=== PATIENT | female | born 1985 | race Caucasian/White ===

== ENCOUNTER 2019-04-15 04:33 | Emergency (ER) | payer MEDICAID, OTHER ==
[~2019-04-15] VITALS: Ht 152.4 cm; Wt 69.0 kg
[2019-04-15] MEDS ORDERED: SODIUM CHLORIDE 0.9% 1,000 ML IV ONE (05:01)
[2019-04-15] MEDS ORDERED: ONDANSETRON HCL 4MG/2ML INJ IV STA (05:01)
[2019-04-15] MEDS ORDERED: MORPHINE SULFATE 4 MG/ML CPJ (NOT FOR IM USE) IV STA (05:01)
[2019-04-15] MEDS ORDERED: DIPHENHYDRAMINE 50MG/ML VIAL IV ONE (05:15)
[2019-04-15 05:33] LABS: BASOPHILS % 1.2 % (0.0-2.0); EOSINOPHILS % 2.6 % (0.0-5.0); HEMATOCRIT. 36.8 % (36.0-48.0); HEMOGLOBIN. 12.6 g/dL (12.0-16.0); LYMPHOCYTES % 35.2 % (20.0-50.0); MEAN CORPUSCULAR HEMOGLOBIN 30.7 pg (28.0-32.0); MEAN CORPUSCULAR VOLUME 89.5 fL (81.0-99.0); MEAN PLATELET VOLUME 6.8 fl (7.4-10.4); MONOCYTES % 7.4 % (2.0-8.0); NEUTROPHILS % 53.6 % (40.0-76.0); PLATELET 364 x1000/uL (130-400); RED BLOOD CELL COUNT 4.11 mill/uL (4.2-5.4)
[2019-04-15 05:42] LABS: CHLORIDE 106 mEq/L (98-107)
[2019-04-15 05:53] LABS: CLARITY URINE CLEAR (CLEAR); COLOR URINE YELLOW (YELLOW); KETONES URINE NEGATIVE (NEGATIVE); LEUKOCYTE ESTERASE URINE NEGATIVE (NEGATIVE); NITRITE URINE NEGATIVE (NEGATIVE); OCCULT BLOOD URINE NEGATIVE (NEGATIVE); PH URINE 6.5 (4.5-8.0); PROTEIN URINE NEGATIVE (NEGATIVE); SPECIFIC GRAVITY URINE 1.019 (1.005-1.030); UROBILINOGEN URINE 0.2 E.U./dL (0.2-1.0)
[2019-04-15 07:34] VITALS: BP 118/74
== END 2019-04-15 07:45 | disposition home or self-care (01) ==
LOC: ER 04:33
DX: R10.9 Unspecified abdominal pain (principal); E11.9 Type 2 diabetes mellitus without complications; I10 Essential (primary) hypertension; Z88.6 Allergy status to analgesic agent
CPT/HCPCS: 36415; 74176; 76705; 80053; 81003; 81025; 83690; 85025; 96374; 96375; 99284; J1200; J2270; J2405; J7030

== ENCOUNTER 2020-04-24 13:43 | Emergency (ER) | payer MEDICAID, OTHER ==
[~2020-04-24] VITALS: Ht 157.5 cm; Wt 69.0 kg
[2020-04-24 14:36] LABS: CLARITY URINE CLOUDY (CLEAR); COLOR URINE YELLOW (YELLOW); KETONES URINE NEGATIVE (NEGATIVE); LEUKOCYTE ESTERASE URINE 3+ (NEGATIVE); NITRITE URINE NEGATIVE (NEGATIVE); OCCULT BLOOD URINE NEGATIVE (NEGATIVE); PH URINE 7.5 (4.5-8.0); PROTEIN URINE NEGATIVE (NEGATIVE); SPECIFIC GRAVITY URINE 1.019 (1.005-1.030); UROBILINOGEN URINE 0.2 E.U./dL (0.2-1.0)
[2020-04-24 14:39] LABS: BASOPHILS % 1.4 % (0.0-2.0); EOSINOPHILS % 1.3 % (0.0-5.0); HEMATOCRIT. 40.8 % (36.0-48.0); HEMOGLOBIN. 13.9 g/dL (12.0-16.0); LYMPHOCYTES % 32.2 % (20.0-50.0); MEAN CORPUSCULAR HEMOGLOBIN 30.6 pg (28.0-32.0); MEAN CORPUSCULAR VOLUME 89.9 fL (81.0-99.0); MEAN PLATELET VOLUME 6.5 fl (7.4-10.4); NEUTROPHILS % 59.1 % (40.0-76.0); PLATELET 373 x1000/uL (130-400); RED BLOOD CELL COUNT 4.54 mill/uL (4.2-5.4); RED CELL DISTRIBUTION WIDTH 13.6 % (11.6-14.6)
[2020-04-24 14:40] LABS: CHLORIDE 105 mEq/L (98-107)
[2020-04-24 14:41] LABS: INR 0.9
[2020-04-24 15:18] LABS: HCG SCREEN NEGATIVE
[2020-04-24] MEDS ORDERED: MORPHINE SULFATE 4 MG/ML CPJ (NOT FOR IM USE) IV ONE (15:30)
[2020-04-24 17:00] VITALS: BP 114/67
[2020-04-24] MEDS ORDERED: IOHEXOL-300 100 ML BOTTLE ONE (18:23)
== END 2020-04-24 17:00 | disposition home or self-care (01) ==
LOC: ER 13:43
DX: N10 Acute pyelonephritis (principal); E11.9 Type 2 diabetes mellitus without complications; Z87.440 Personal history of urinary (tract) infections; Z98.890 Other specified postprocedural states; Z88.6 Allergy status to analgesic agent
CPT/HCPCS: 36415; 74176; 80053; 81003; 81025; 83690; 84703; 85025; 85610; 87086; 96374; 99284; J2270; Q9967

== ENCOUNTER 2021-03-23 15:55 | Inpatient (IN) | payer MEDICAID ==
[~2021-03-23] VITALS: Ht 149.9 cm; Wt 66.2 kg
[2021-03-23] MEDS ORDERED: ONDANSETRON HCL 4MG/2ML INJ IV STA (16:55)
[2021-03-23] MEDS ORDERED: MORPHINE SULFATE 4 MG/ML CPJ (NOT FOR IM USE) IV STA (16:55)
[2021-03-23] MEDS ORDERED: SODIUM CHLORIDE 0.9% 1,000 ML IV ONE (17:00)
[2021-03-23 17:43] LABS: BASOPHILS % 1.3 % (0.0-2.0); EOSINOPHILS % 2.1 % (0.0-5.0); HEMATOCRIT. 37.3 % (36.0-48.0); HEMOGLOBIN. 12.2 g/dL (12.0-16.0); MEAN CORPUSCULAR HEMOGLOBIN 27.5 pg (28.0-32.0); MEAN CORPUSCULAR VOLUME 83.9 fL (81.0-99.0); MEAN PLATELET VOLUME 6.6 fl (7.4-10.4); MONOCYTES % 6.8 % (2.0-8.0); NEUTROPHILS % 59.8 % (40.0-76.0); PLATELET 446 x1000/uL (130-400); RED BLOOD CELL COUNT 4.45 mill/uL (4.2-5.4); RED CELL DISTRIBUTION WIDTH 15.4 % (11.6-14.6)
[2021-03-23 17:52] LABS: INR 0.9
[2021-03-23 17:53] LABS: ETHANOL BLOOD < 10 mg/dL
[2021-03-23 18:05] LABS: HCG SCREEN NEGATIVE
[2021-03-23 18:09] LABS: CHLORIDE 109 mEq/L (98-107)
[2021-03-23] MEDS ORDERED: CEFTRIAXONE 2 G PREMIX 50 ML IV ONE (18:45)
[2021-03-23] MEDS ORDERED: FENTANYL CITRATE/PF 50MCG/ML 2ML VIAL IV ONE (18:45)
[2021-03-23] MEDS ORDERED: METHYLPREDNISOLONE SOD SUCC 125 MG/2 ML VIAL IV ONE ×2 (18:45→21:15)
[2021-03-23] MEDS ORDERED: DIPHENHYDRAMINE 50MG/ML VIAL IV ONE ×2 (18:45→21:15)
[2021-03-23] MEDS ORDERED: METRONIDAZOLE 500 MG PREMIX 100 ML IV ONE (18:45)
[2021-03-23 20:14] LABS: CLARITY URINE CLEAR (CLEAR); COLOR URINE YELLOW (YELLOW); KETONES URINE NEGATIVE (NEGATIVE); LEUKOCYTE ESTERASE URINE NEGATIVE (NEGATIVE); NITRITE URINE NEGATIVE (NEGATIVE); OCCULT BLOOD URINE NEGATIVE (NEGATIVE); PH URINE 7.5 (4.5-8.0); PROTEIN URINE NEGATIVE (NEGATIVE); SPECIFIC GRAVITY URINE 1.011 (1.005-1.030); UROBILINOGEN URINE 0.2 E.U./dL (0.2-1.0)
[2021-03-23 20:24] LABS: *BARBITURATES SCREEN URINE NEGATIVE (NEGATIVE); *BENZODIAZEPINES SCREEN URINE NEGATIVE (NEGATIVE); *COCAINE SCREEN URINE NEGATIVE (NEGATIVE); METHADONE URINE SCREEN NEGATIVE (NEGATIVE)
[2021-03-23 20:25] LABS: *AMPHETAMINES SCREEN URINE PRESUMTIVE POSITIVE (NEGATIVE); CANNABINOID URINE SCREEN NEGATIVE (NEGATIVE); OPIATES URINE SCREEN PRESUMTIVE POSITIVE (NEGATIVE); PHENCYCLIDINE URINE SCREEN NEGATIVE (NEGATIVE)
[2021-03-23] MEDS ORDERED: EPINEPHRINE 1:1000 1 MG/ML AMP IM ONE (21:15)
[2021-03-23] MEDS ORDERED: MORPHINE SULFATE 4 MG/ML CPJ (NOT FOR IM USE) IV ONE (22:15)
[2021-03-23] MEDS ORDERED: IOHEXOL-300 100 ML BOTTLE ONE (23:20)
[2021-03-24] MEDS ORDERED: LORAZEPAM 2MG/ML CPJ IV PRN (02:00)
[2021-03-24] MEDS: MORPHINE SULFATE 2 MG/ML CPJ (NOT FOR IM USE) IV PRN ×2 (02:15→06:35)
[2021-03-24] MEDS ORDERED: MORPHINE SULFATE 2 MG/ML CPJ (NOT FOR IM USE) IV SCH (08:15)
[2021-03-24] MEDS ORDERED: ONDANSETRON HCL 4MG/2ML INJ IV SCH (08:15)
[2021-03-24] MEDS ORDERED: NALOXONE HCL 0.4MG/ML VIAL IV PRN (08:45)
[2021-03-24] MEDS ORDERED: ONDANSETRON HCL 4MG/2ML INJ IV PRN (08:45)
[2021-03-24] MEDS ORDERED: HYDROCODONE/ACETAMINOPHEN 5/325MG TABLET PO PRN (08:45)
[2021-03-24 11:25] VITALS: BP 139/93
[2021-03-24 12:00] VITALS: BP 104/50
[2021-03-24] MEDS ORDERED: ONDA4TAB5 MT (12:20)
[2021-03-24] MEDS ORDERED: ALPR0.5T MT (12:20)
[2021-03-24] MEDS ORDERED: HYDR-4009 MT (12:20)
[2021-03-24 14:57] VITALS: BP 120/71
[2021-03-24 16:00] VITALS: BP 120/71
== END 2021-03-24 16:50 | disposition home or self-care (01) | DRG 532 ==
LOC: ER 15:55 → MICUSO 03-24 01:07 → 6EST 03-24 08:36
PROVIDERS: ADMIT Internal Medicine; ATTEND Internal Medicine
DX: N83.209 Unspecified ovarian cyst, unspecified side (principal); E87.8 Other disorders of electrolyte and fluid balance, not elsewhere classified; E11.9 Type 2 diabetes mellitus without complications; F17.210 Nicotine dependence, cigarettes, uncomplicated; E66.9 Obesity, unspecified; F15.90 Other stimulant use, unspecified, uncomplicated; Z90.49 Acquired absence of other specified parts of digestive tract; Z98.1 Arthrodesis status; Z68.29 Body mass index [BMI] 29.0-29.9, adult; Z88.8 Allergy status to other drugs, medicaments and biological substances; Z79.899 Other long term (current) drug therapy; Z91.041 Radiographic dye allergy status; Z71.51 Drug abuse counseling and surveillance of drug abuser; Z71.6 Tobacco abuse counseling
CPT/HCPCS: 36415; 71045; 74177; 76830; 76856; 80053; 80305; 80320; 81003; 83605; 84703; 85025; 86850; 86900; 93005; 99285; J0696; J1200; J2060; J2270; J2405; J2930; J3010; J3490; J7030; Q9967; G0480

== ENCOUNTER 2021-03-25 22:38 | Emergency (ER) | payer MEDICAID ==
[~2021-03-25] VITALS: Ht 149.9 cm; Wt 67.0 kg
[~2021-03-25 22:38] MED LIST: ALPR0.5T MT; HYDR-4009 MT; ONDA4TAB5 MT
[2021-03-25] MEDS: ACETAMINOPHEN 325MG TABLET PO STA ×2 (23:10→23:11)
[2021-03-25 23:16] LABS: CLARITY URINE CLOUDY (CLEAR); COLOR URINE YELLOW (YELLOW); KETONES URINE NEGATIVE (NEGATIVE); LEUKOCYTE ESTERASE URINE 1+ (NEGATIVE); NITRITE URINE NEGATIVE (NEGATIVE); OCCULT BLOOD URINE NEGATIVE (NEGATIVE); PROTEIN URINE NEGATIVE (NEGATIVE); SPECIFIC GRAVITY URINE 1.022 (1.005-1.030); UROBILINOGEN URINE 0.2 E.U./dL (0.2-1.0)
[2021-03-25 23:34] LABS: CHLORIDE 106 mEq/L (98-107)
[2021-03-25 23:35] LABS: BASOPHILS % 0.3 % (0.0-2.0); EOSINOPHILS % 0.4 % (0.0-5.0); HEMATOCRIT. 32.1 % (36.0-48.0); HEMOGLOBIN. 10.5 g/dL (12.0-16.0); MEAN CORPUSCULAR HEMOGLOBIN 27.5 pg (28.0-32.0); MEAN CORPUSCULAR VOLUME 83.9 fL (81.0-99.0); MEAN PLATELET VOLUME 6.3 fl (7.4-10.4); MONOCYTES % 6.4 % (2.0-8.0); NEUTROPHILS % 64.9 % (40.0-76.0); PLATELET 448 x1000/uL (130-400); RED BLOOD CELL COUNT 3.83 mill/uL (4.2-5.4); RED CELL DISTRIBUTION WIDTH 15.6 % (11.6-14.6)
[2021-03-25 23:40] LABS: HCG SCREEN NEGATIVE
[2021-03-26] MEDS ORDERED: POTASSIUM CHLORIDE 20MEQ TABLET SR PO ONE
[2021-03-26 01:00] VITALS: BP 142/82
== END 2021-03-26 01:48 | disposition home or self-care (01) ==
LOC: ER 22:38
DX: R10.31 Right lower quadrant pain (principal); R10.32 Left lower quadrant pain; R11.2 Nausea with vomiting, unspecified; E11.9 Type 2 diabetes mellitus without complications; I10 Essential (primary) hypertension; Z98.890 Other specified postprocedural states; Z88.5 Allergy status to narcotic agent
CPT/HCPCS: 36415; 80053; 81003; 84703; 85025; 99283

== ENCOUNTER → 2025-07-22 | Emergency (ER) | payer MEDICAID ==
[~2025-07-22] VITALS: Ht 149.9 cm; Wt 70.0 kg
[~2025-07-22] MED LIST changes: +ACETAMINOPHEN 325MG TABLET PO ONE
[2025-07-22 09:26] VITALS: O2SAT 98
[2025-07-22 09:33] VITALS: BP 165/98; PULSE 90; RESP 17; TEMP 36.8; O2SAT 100
[2025-07-22 10:49] LABS: CREATININE 0.9 mg/dL (0.6-1.0)
[2025-07-22 10:50] LABS: UREA NITROGEN BLOOD 9 mg/dL (9-23)
[2025-07-22 10:56] LABS: BASOPHILS % 1.1 % (0.0-2.0); EOSINOPHILS % 2.1 % (0.0-5.0); HEMATOCRIT. 37.3 % (36.0-48.0); HEMOGLOBIN. 12.0 g/dL (12.0-16.0); LYMPHOCYTES % 28.3 % (20.0-50.0); MONOCYTES % 7.1 % (2.0-8.0); NEUTROPHILS % 61.4 % (40.0-76.0); RED BLOOD CELL COUNT 4.01 mill/uL (4.2-5.4); RED CELL DISTRIBUTION WIDTH 19.1 % (11.6-14.6)
[2025-07-22 10:59] LABS: HCG SCREEN NEGATIVE
[2025-07-22 11:39] LABS: PLATELET 245 x1000/uL (130-400)
== END ==
LOC: ER 09:24
DX: R39.853 Costovertebral (angle) tenderness, bilateral (principal); R07.89 Other chest pain; Z79.01 Long term (current) use of anticoagulants; Z86.718 Personal history of other venous thrombosis and embolism; Z88.8 Allergy status to other drugs, medicaments and biological substances; Z90.49 Acquired absence of other specified parts of digestive tract; Z91.013 Allergy to seafood; Z91.128 Patient's intentional underdosing of medication regimen for other reason; Z98.1 Arthrodesis status
CPT/HCPCS: 80048; 84703; 85025; 36415; 93005; 99284; Z7610 ×3; A4606